=== PATIENT | female | born 1965 | race Caucasian/White ===

== ENCOUNTER → 2016-04-11 | Outpatient (REF) | payer BC | END | disposition home or self-care (01) | LOC: M LAB REF 16:36 | PROVIDERS: ATTEND Obstetrics & Gynecology | DX: C53.8 Malignant neoplasm of overlapping sites of cervix uteri (principal); C54.1 Malignant neoplasm of endometrium; C52 Malignant neoplasm of vagina; N95.0 Postmenopausal bleeding ==

== ENCOUNTER → 2016-04-18 | Outpatient (CLI) | payer BC ==
--- NOTE | 2016-04-19 03:01 | REP ---
Clinical: Neoplasm. Technique: Shultz scale and color Doppler evaluation of the uterus using curved array transducer. Findings: Heterogeneous anteverted uterus measures approximately 12.1 x 4.5 x 5.5 cm. Heterogeneous fluid is identified with in the endometrial canal towards the fundus outlining a 2.6 cm posterofundal mass. A heterogeneous cervical mass is also appreciated which based on current measurements of measures roughly 7.5 cm maximal diameter and appears to obstruct the endocervical canal. Small amount of complex pelvic fluid is also appreciated. Ovaries are not identified. Impression: Large heterogeneous cervical mass measuring 7.5 cm maximal diameter causes obstruction to the endocervical canal which demonstrates small amount of heterogeneous fluid and outlines a second heterogeneous mass at the fundus which measures approximately 2.6 cm maximal diameter. Signed by Jonathan Watters MD 04/19/2016 02:52 A
== END ==
LOC: M RAD 13:32
PROVIDERS: ATTEND Obstetrics & Gynecology
DX: C53.8 Malignant neoplasm of overlapping sites of cervix uteri (principal)